=== PATIENT | male | born 1995 | race Caucasian/White ===

== ENCOUNTER 2023-05-27 18:59 | Emergency (ER) | payer OTHER ==
[~2023-05-27] VITALS: Ht 177.8 cm; Wt 102.1 kg
[2023-05-27 19:07] VITALS: BP 145/83
[2023-05-27] MEDS ORDERED: Ketorolac Tromethamine 30mg Vial IM ONE (19:55)
== END 2023-05-27 20:10 | disposition home or self-care (01) ==
LOC: ER 18:59
DX: S83.91XA Sprain of unspecified site of right knee, initial encounter (principal); Z87.828 Personal history of other (healed) physical injury and trauma; W01.0XXA Fall on same level from slipping, tripping and stumbling without subsequent striking against object, initial encounter
CPT/HCPCS: 73562-RT; 96372; 99283-25; J1885